=== PATIENT | female | born 1965 | race Two or more races ===

== ENCOUNTER 2024-06-28 13:48 | Emergency (ER) | payer SELFPAY ==
[~2024-06-28] VITALS: Ht 157.5 cm; Wt 69.1 kg
[2024-06-28] MEDS: ONDANSETRON HCL 4 MG/2 ML VIAL IVP ONE (16:40)
[2024-06-28] MEDS: MORPHINE SULFATE 4 MG/ML SYRINGE IVP ONE (16:40)
[2024-06-28 16:42] LABS: BASOPHILS % (AUTO) 0.5 % (0.0-2.0); EOSINOPHILS % (AUTO) 0.7 % (1.0-6.0); HEMOGLOBIN 16.1 g/dL (12.0-16.0); LYMPHOCYTES # (AUTO) 1.3 K/uL (1.0-4.8); MEAN CORPUSCULAR HEMOGLOBIN 33.1 pg (26.0-34.0); MEAN CORPUSCULAR HGB CONC 34.9 G/dL (31.0-37.0); MEAN CORPUSCULAR VOLUME 95 fL (80-100); MONOCYTES # (AUTO) 0.3 K/uL (0.1-1.0); MONOCYTES % (AUTO) 4.8 % (2.0-9.0); NEUTROPHILS # (AUTO) 5.3 K/uL (1.8-7.7); PLATELET COUNT (AUTO) 195 K/uL (150-450); RED BLOOD CELL COUNT(AUTO) 4.85 MIL/uL (4.00-5.20); RED CELL DISTRIBUTION WIDTH 12.5 % (11.5-14.5)
[2024-06-28] MEDS ORDERED: IOHEXOL 350 MG/ML 100 ML VIAL ONE (16:44)
[2024-06-28 16:50] LABS: ANION GAP 10 mmol/L (8-16); CALCIUM, TOTAL 9.3 mg/dL (8.8-10.5); CARBON DIOXIDE 27 mmol/L (22-29); CHLORIDE 104 mmol/L (98-107); CREATININE 0.81 mg/dL (0.60-1.30); GLOMERULAR FILTR. RATE CALC > 60 mL/min (>60); GLUCOSE,RANDOM 109 mg/dL (70-110); POTASSIUM 4.1 mmol/L (3.5-5.1); SODIUM SERUM 141 mmol/L (136-145); UREA NITROGEN, BLOOD 13 mg/dL (7-18)
[2024-06-28 16:56] LABS: ALANINE AMINOTRANSFERASE 25 U/L (12-78); ALKALINE PHOSPHATASE 113 U/L (46-116); ASPARTATE AMINOTRANSFERASE 24 U/L (15-37); BILIRUBIN,TOTAL 0.6 mg/dL (0.1-1.0); LIPASE 52 U/L (16-77); TOTAL PROTEIN, SERUM 7.8 g/dL (6.4-8.2)
[2024-06-28 17:00] LABS: TROPONIN I-HIGH SENSITIVITY Less Than 4 ng/L (<51)
[2024-06-28 18:53] LABS: APPEARANCE,URINE CLEAR (CLEAR); BILIRUBIN,URINE NEGATIVE (NEGATIVE); COLOR,URINE LIGHT YELLOW (YELLOW); GLUCOSE, URINE (UA) NEGATIVE (NEGATIVE); KETONES,URINE TRACE mg/dL (NEGATIVE); LEUKOCYTE ESTERASE ,URINE MODERATE (NEGATIVE); NITRATE,URINE NEGATIVE (NEGATIVE); OCCULT BLOOD,URINE TRACE (NEGATIVE); PROTEIN,URINE TRACE mg/dL (NEGATIVE); UROBILINOGEN,URINE <=1.0 mg/dL (<=1.0)
[2024-06-28 19:10] LABS: COVID AG,FIA SOURCE NASAL SWAB
[2024-06-28 19:32] LABS: BACTERIA,URINE Few /HPF (None Seen); RBC,URINE 0-2 /HPF (0-2); SQUAMOUS EPITHELIAL CELL,UR Few /LPF (None Seen)
[2024-06-28 19:53] LABS: SARS-COV2 (COVID) ANTIGEN,FIA Negative (Negative)
[2024-06-28 19:54] LABS: INFLUENZA TYPE A NEGATIVE FOR TYPE A (NEGATIVE); INFLUENZA TYPE B NEGATIVE FOR TYPE B (NEGATIVE)
[2024-06-28] MEDS ORDERED: DOXYCYCLINE HYCLATE 100 MG TABLET PO ONE (22:00)
[2024-06-28 22:13] VITALS: TEMP 98.3
[2024-06-28] MEDS ORDERED: ONDA-104 PO (22:14)
[2024-06-28] MEDS ORDERED: SULF-261 PO (22:14)
[2024-06-28] MEDS ORDERED: AZIT250T9 PO (22:14)
[2024-06-28] MEDS: AZITHROMYCIN 500 MG TABLET PO ONE (22:22)
[2024-06-28] MEDS: SULFAMETHOX/TRIMETH DS 800-160 MG/TABLET PO ONE (22:23)
[2024-06-28 22:34] VITALS: BP 146/78; PULSE 75; RESP 20; O2SAT 99
== END 2024-06-28 22:37 | disposition home or self-care (01) ==
LOC: EMS 13:48
DX: N39.0 Urinary tract infection, site not specified (principal); J18.9 Pneumonia, unspecified organism; K42.9 Umbilical hernia without obstruction or gangrene; K44.9 Diaphragmatic hernia without obstruction or gangrene; R11.2 Nausea with vomiting, unspecified; K76.89 Other specified diseases of liver; K40.20 Bilateral inguinal hernia, without obstruction or gangrene, not specified as recurrent; K21.9 Gastro-esophageal reflux disease without esophagitis; Z88.0 Allergy status to penicillin; Z20.822 Contact with and (suspected) exposure to COVID-19
CPT/HCPCS: 99285; 74177; 96374; 76705; 71045; 96375; 87426; 80048; 80076; 81001; 83690; 84484; 85025; 87086; 87804; 36415; 93005; J0456; Q9967; J2270; J2405